=== PATIENT | female | born 1980 | race Caucasian/White ===

== ENCOUNTER → 2017-05-13 | Outpatient (REF) | payer BC | LOC: M SFHCWAGY 08:36 | PROVIDERS: ATTEND Nurse Practitioner Women's Health | DX: Z01.419 Encounter for gynecological examination (general) (routine) without abnormal findings (principal); Z11.51 Encounter for screening for human papillomavirus (HPV); R87.610 Atypical squamous cells of undetermined significance on cytologic smear of cervix (ASC-US) ==

== ENCOUNTER 2018-01-19 14:17 | Emergency (ER) | payer BC | END 2018-01-19 16:56 | disposition home or self-care (01) | LOC: M ED 14:17 | DX: R04.0 Epistaxis (principal); R03.0 Elevated blood-pressure reading, without diagnosis of hypertension; Z87.442 Personal history of urinary calculi; J30.81 Allergic rhinitis due to animal (cat) (dog) hair and dander; J30.89 Other allergic rhinitis; Z88.0 Allergy status to penicillin | CPT/HCPCS: 99283 ==

== ENCOUNTER → 2018-02-09 | Outpatient (CLI) | payer BC ==
[2018-02-09 08:29] LABS: BASO % 0.2 % (0.0-1.0); EOS # 0.1 10^3/uL (0.0-0.50); EOS % 2.4 % (0.0-3.0); HEMATOCRIT 38.9 % (36.0-47.0); IMMATURE GRANULOCYTE % 0.4 % (0-3.0); LYMPH # 1.3 10^3/uL (1.5-4.5); LYMPH % 25.7 % (24.0-44.0); MEAN CORPUSCULAR HEMOGLOBIN 30.7 pg (27.0-33.0); MEAN CORPUSCULAR HGB CONC 33.4 g/dl (32.0-36.5); MONO # 0.5 10^3/uL (0.0-0.8); NEUTROPHILS # 3.1 10^3/uL (1.8-7.7); NEUTROPHILS % 62.3 % (36.0-66.0); PLATELET COUNT, AUTOMATED 257 10^3/uL (150-450); RED BLOOD COUNT 4.23 10^6/uL (4.00-5.40); RED CELL DISTRIBUTION WIDTH 11.9 % (11.5-14.5)
[2018-02-09 09:32] LABS: ALKALINE PHOSPHATASE 46 U/L (45-117); ALT/SGPT 19 U/L (12-78); ANION GAP 7 MEQ/L (8-16); AST/SGOT 9 U/L (7-37); BLOOD UREA NITROGEN 9 MG/DL (7-18); CALCIUM LEVEL 8.8 MG/DL (8.5-10.1); CARBON DIOXIDE LEVEL 28 MEQ/L (21-32); CHLORIDE LEVEL 106 MEQ/L (98-107); CREATININE FOR GFR 0.77 MG/DL (0.55-1.30); GLOMERULAR FILTRATION RATE > 60.0 (>60); GLUCOSE, FASTING 85 MG/DL (70-100); POTASSIUM SERUM 4.2 MEQ/L (3.5-5.1); SODIUM LEVEL 141 MEQ/L (136-145)
[2018-02-09 09:33] LABS: ALBUMIN 3.6 GM/DL (3.2-5.2); ALBUMIN/GLOBULIN RATIO 0.97 (1.00-1.93); BILIRUBIN,TOTAL 0.4 MG/DL (0.2-1.0); CHOLESTEROL LEVEL 137 MG/DL (<200); CHOLESTEROL RISK RATIO 3.261 (<5); HDL CHOLESTEROL 42 MG/DL (>40); LDL CHOLESTEROL 76.8 MG/DL (<100); NON-HDL-C 95 MG/DL; TOTAL PROTEIN 7.3 GM/DL (6.4-8.2); TRIGLYCERIDES LEVEL 91 MG/DL (<150)
== END ==
LOC: M LAB 07:56
DX: R03.0 Elevated blood-pressure reading, without diagnosis of hypertension (principal)
CPT/HCPCS: 84443

== ENCOUNTER → 2018-05-14 | Outpatient (REF) | payer BC ==
[2018-05-18 14:14] LABS: HPV HYBRID CAPTURE II Negative (Negative)
== END ==
LOC: M SFHCWAGY 08:32
DX: Z12.4 Encounter for screening for malignant neoplasm of cervix (principal)
CPT/HCPCS: G0123

== ENCOUNTER → 2018-11-26 | Outpatient (CLI) | payer BC ==
[~2018-11-26] MED LIST: no medications
--- NOTE | 2018-11-26 14:49 | REP ---
BILATERAL MAMMOGRAM WITH 3D TOMOSYNTHESIS, DIAGNOSTIC MAMMOGRAM LEFT BREAST WITH LEFT BREAST ULTRASOUND: Bilateral mammography performed in the MLO and CC projections with 3D tomosynthesis. This is the patient's baseline mammogram. Patient reports a palpable lump in the posterior upper outer quadrant of the left breast in the region of the axillary tail. Additional spot compression views of that area are performed. There is no family history of breast cancer. Tyrer-Cuzick lifetime risk of breast cancer 12.5%. Moderate heterogeneous fibroglandular tissue is seen bilaterally. No mass is seen on the right. On the left at the site of the palpable lump there is a round fairly well circumscribed nodule measuring 2 cm in diameter, located in the axillary tail region. Another smoothly marginated oval nodule is seen laterally in the left breast closer to the nipple, approximately 2-3 cm from the nipple measuring about 2 cm in maximum diameter. I see no other mass bilaterally. No clustered microcalcifications are seen. Real-time sonographic evaluation of the left breast is performed to evaluate the two nodules seen by mammography. At the site of the palpable lump in the axillary tail region at about 1 o'clock position a hypoechoic mass is seen. This measures 1.7 x 1.2 x 2.2 cm. It is likely solid and biopsy is recommended. Also in the left axilla is a mildly enlarged lymph node 1.8 x 1.0 x 2.6 cm. Closer to the nipple at 3 o'clock is a cyst corresponding to the other circumscribed nodule, measuring 1.9 x 1.0 x 1.5 cm. IMPRESSION: BIRADS 4: BI-RADS/ACR category 4 mammogram. Suspicious Abnormality - biopsy should be considered. At the site of the palpable lump 1 o'clock left breast in the region of the axillary tail there is a solid nodule with a maximum diameter of 2.2 cm for which ultrasound guided biopsy is recommended. There is also a mildly enlarged left axillary lymph node and I would recommend ultrasound guided biopsy of the lymph node as well. Closer to the nipple the other well circumscribed nodule corresponds to a benign cyst. This mammogram was interpreted with the aid of an FDA-approved computer-aided detection system. The patient states he/she had a clinical breast exam in 10/2018. The patient letter being requested is M4. Electronically Signed by Aureliano Magana MD 11/26/2018 04:18 P
== END ==
LOC: M RAD 11:23
PROVIDERS: ATTEND Nurse Practitioner Women's Health
DX: N63.21 Unspecified lump in the left breast, upper outer quadrant (principal); R59.0 Localized enlarged lymph nodes; N60.02 Solitary cyst of left breast
CPT/HCPCS: 76642; 77066; G0279

== ENCOUNTER → 2019-05-16 | Outpatient (REF) | payer BC ==
[2019-05-18 14:07] LABS: HPV HYBRID CAPTURE II Negative (Negative)
== END ==
LOC: M SFHCWAGY 08:27
PROVIDERS: ATTEND Nurse Practitioner Women's Health
DX: Z12.4 Encounter for screening for malignant neoplasm of cervix (principal)

== ENCOUNTER → 2021-05-21 | Outpatient (REF) | payer BC, OTHER | LOC: M SFHCWAGY 13:09 | PROVIDERS: ATTEND Nurse Practitioner Women's Health | DX: Z12.4 Encounter for screening for malignant neoplasm of cervix (principal) ==

== ENCOUNTER → 2023-05-12 | Outpatient (REF) | payer BC, OTHER | LOC: M SFHCWAGY 17:18 | PROVIDERS: ATTEND Nurse Practitioner Family | DX: Z12.4 Encounter for screening for malignant neoplasm of cervix (principal) | CPT/HCPCS: 87624; G0123 ==